=== PATIENT | female | born 1960 | race Caucasian/White ===

== ENCOUNTER 2017-07-11 10:42 | Inpatient (IN) | payer BC, OTHER ==
[2017-07-11] VITALS (10 sets, daily range): BP systolic 116–157; BP diastolic 65–78; PULSE 70–120; RESP 16–20; TEMP 97.3–99; O2SAT 98–100
[~2017-07-11] VITALS: Ht 162.6 cm; Wt 71.5 kg
[~2017-07-11 10:42] MED LIST: BP PILL; CHOLESTEROL PILL; LORT5TAB PO
[2017-07-11] MEDS ORDERED: ROSU40 PO (10:58)
[2017-07-11] MEDS ORDERED: ALLO100T PO (10:58)
[2017-07-11] MEDS ORDERED: BP MED (10:58)
[2017-07-11] MEDS ORDERED: SODIUM CHLOR 0.9% 250 ML INJ 250 ML IV ONE (11:00)
--- NOTE | 2017-07-11 11:14 | PD ---
HPI Chief Complaint: Abnormal Results Time Seen by Provider: 10:58 Travel History International Travel<30 days: No Contact w/Intl Traveler<30days: No Traveled to known affect area: No History of Present Illness HPI The patient 57 years old and arrives due to low hemoglobin obtained on blood work which was drawn yesterday. Hemoglobin is 5.8. The patient has history of chronic hematuria. She follows with urology, Dr. Mendoza, a few years ago and a cystoscopy was done which was unremarkable. The patient also has large bleeding hemorrhoids and has followed with colorectal service, Dr. Schultz, who advised colonoscopy and hemorrhoidectomy. Patient has not undergone colonoscopy. She does report a slightly orange urine always. No black stool blood mixed with stool. She reports shortness of breath on exertion, palpitations, dizziness and headaches. PFSH Past Medical History High Cholesterol: Yes Diminished Hearing: No Hypertension: Yes Tetanus Vaccination: Unknown ?: Not Past Surgical History Hysterectomy: Yes Social History Alcohol Use: Yes (2/DAY) Tobacco Use: No Substance Use: No Allergies-Medications (Allergen,Severity, Reaction): Coded Allergies: No Known Allergies (Verified Adverse Reaction, Unknown, 07/11/17) Reported Meds & Prescriptions Reported Meds & Active Scripts Active Reported [Bp Med] Crestor (Rosuvastatin Calcium) 40 Mg Tab 40 Mg PO DAILY Allopurinol 100 Mg Tab 100 Mg PO DAILY Review of Systems Except as stated in HPI: all other systems reviewed are Neg General / Constitutional: No: Fever Physical Exam Narrative GENERAL: 57-year-old female pleasant well-nourished well-developed Vital Signs Date Time Temp Pulse Resp B/P (MAP) Pulse Ox O2 Delivery O2 Flow Rate FiO2 07/11/17 10:52 16 100 Room Air 07/11/17 10:44 99.0 120 16 145/65 (91) 100 SKIN: Warm and dry. HEAD: Atraumatic. Normocephalic. EYES: Pupils equal and round. No scleral icterus. No injection or drainage. ENT: No nasal bleeding or discharge. Mucous membranes pink and moist. NECK: Trachea midline. No JVD. CARDIOVASCULAR: Tachycardia. Regular rhythm. RESPIRATORY: No accessory muscle use. Clear to auscultation. Breath sounds equal bilaterally. GASTROINTESTINAL: Abdomen soft, non-tender, nondistended. Hepatic and splenic margins not palpable. MUSCULOSKELETAL: Extremities without clubbing, cyanosis, or edema. No obvious deformities. NEUROLOGICAL: Awake and alert. No obvious cranial nerve deficits. Motor grossly within normal limits. Five out of 5 muscle strength in the arms and legs. Normal speech. PSYCHIATRIC: Appropriate mood and affect; insight and judgment normal. Data Data Last Documented VS Vital Signs Date Time Temp Pulse Resp B/P (MAP) Pulse Ox O2 Delivery O2 Flow Rate FiO2 07/11/17 10:52 16 100 Room Air 07/11/17 10:44 99.0 120 145/65 (91) Orders Orders Complete Blood Count With Diff (07/11/17 10:56) Basic Metabolic Panel (Bmp) (07/11/17 10:56) ^ Saline Lock (07/11/17 10:56) Red Blood Cells (Rbc) (07/11/17 10:56) Blood Product Administration (07/11/17 10:56) Sodium Chlor 0.9% 250 Ml Inj (Ns 250 Ml (07/11/17 11:00) Type And Screen (07/11/17 10:56) Admit To Inpatient (07/11/17 ) Vital Signs (Adult) Q4H (07/11/17 11:38) Activity Bed Rest (07/11/17 11:38) Diet Heart Healthy (07/11/17 Lunch) Sodium Chlor 0.45% 1000 Ml Inj (1/2 Ns 1 (07/11/17 11:38) Sodium Chloride 0.9% Flush (Ns Flush) (07/11/17 11:45) Sodium Chloride 0.9% Flush (Ns Flush) (07/11/17 21:00) Acetaminophen (Tylenol) (07/11/17 11:45) Ondansetron Inj (Zofran Inj) (07/11/17 11:45) Basic Metabolic Panel (Bmp) (07/12/17 06:00) Complete Blood Count With Diff (07/12/17 06:00) Scd Bilateral/Knee High COURTNEY.BID (07/11/17 11:38) Naloxone Inj (Narcan Inj) (07/11/17 11:45) Docusate Sodium-Senna (Emma-Colace) (07/11/17 21:00) Magnesium Hydroxide Liq (Milk Of Magnesi (07/11/17 11:45) Sennosides (Senokot) (07/11/17 11:45) Bisacodyl Supp (Dulcolax Supp) (07/11/17 11:45) Inpatient Certification (07/11/17 ) Consult Gastroenterology (07/11/17 ) Clonidine (Catapres) (07/11/17 11:45) Labs Laboratory Tests Test 07/11/17 11:00 White Blood Count 12.4 TH/MM3 Red Blood Count 2.07 MIL/MM3 Hemoglobin 5.8 GM/DL Hematocrit 17.5 % Mean Corpuscular Volume 84.7 FL Mean Corpuscular Hemoglobin 28.1 PG Mean Corpuscular Hemoglobin Concent 33.2 % Red Cell Distribution Width 14.6 % Platelet Count 637 TH/MM3 Mean Platelet Volume 8.3 FL Neutrophils (%) (Auto) 68.2 % Lymphocytes (%) (Auto) 16.8 % Monocytes (%) (Auto) 8.6 % Eosinophils (%) (Auto) 2.1 % Basophils (%) (Auto) 4.3 % Neutrophils # (Auto) 8.4 TH/MM3 Lymphocytes # (Auto) 2.1 TH/MM3 Monocytes # (Auto) 1.1 TH/MM3 Eosinophils # (Auto) 0.3 TH/MM3 Basophils # (Auto) 0.5 TH/MM3 CBC Comment DIFF FINAL Differential Comment Blood Urea Nitrogen 11 MG/DL Creatinine 0.89 MG/DL Random Glucose 134 MG/DL Calcium Level 9.2 MG/DL Sodium Level 138 MEQ/L Potassium Level 3.5 MEQ/L Chloride Level 104 MEQ/L Carbon Dioxide Level 22.3 MEQ/L Anion Gap 12 MEQ/L Estimat Glomerular Filtration Rate 65 ML/MIN MDM Medical Decision Making Medical Screen Exam Complete: Yes Emergency Medical Condition: Yes Medical Record Reviewed: Yes Differential Diagnosis bleed, GI bleed, anemia, anemia chronic disease Narrative Course We have the blood work from [facility] which revealed a hemoglobin of 5.8. The patient also has symptoms consistent with it. 3 units packed cells ordered. Patient will be admitted for red cell transfusion and workup as deemed appropriate by admitting service. CBC & BMP Diagram 07/11/17 11:00 Calcium Level 9.2 Discussed with extended provider Mayra paris for Dr Stallworth. Diagnosis Primary Impression: Anemia Qualified Codes: D64.9 - Anemia, unspecified Admitting Information Admitting Physician Requests: Corey Garcia MD July 11, 2017 11:14
[2017-07-11 11:18] LABS: AUTOMATED NEUTROPHIL # 8.4 TH/MM3 (1.8-7.7); BASOPHIL # 0.5 TH/MM3 (0-0.2); BASOPHIL % 4.3 % (0.0-2.0); EOSINOPHIL # 0.3 TH/MM3 (0-0.4); EOSINOPHIL % 2.1 % (0.0-4.0); LYMPH % 16.8 % (9.0-44.0); LYMPHOCYTE # 2.1 TH/MM3 (1.0-4.8); MEAN CELL VOLUME 84.7 FL (80.0-100.0); MEAN CORPUSCULAR HEMOGLOBIN 28.1 PG (27.0-34.0); MEAN CORPUSCULAR HGB CONC 33.2 % (32.0-36.0); MEAN PLATELET VOLUME 8.3 FL (7.0-11.0); MONO % 8.6 % (0.0-8.0); MONOCYTE # 1.1 TH/MM3 (0-0.9); NEUT % 68.2 % (16.0-70.0); PLATELET COUNT 637 TH/MM3 (150-450); RED BLOOD COUNT 2.07 MIL/MM3 (4.00-5.30); RED CELL DISTRIBUTION WIDTH 14.6 % (11.6-17.2); WHITE BLOOD COUNT 12.4 TH/MM3 (4.0-11.0)
[2017-07-11 11:23] LABS: HEMATOCRIT 17.5 % (35.0-46.0); HEMOGLOBIN 5.8 GM/DL (11.6-15.3)
[2017-07-11 11:37] LABS: CALCIUM 9.2 MG/DL (8.5-10.1)
[2017-07-11 11:38] LABS: BICARBONATE 22.3 MEQ/L (21.0-32.0)
[2017-07-11 11:41] LABS: CREATININE 0.89 MG/DL (0.50-1.00)
[2017-07-11] MEDS ORDERED: MAGNESIUM HYDROXIDE SUSP 30 ML CUP PO PRN (11:45)
[2017-07-11] MEDS ORDERED: SENNOSIDES 8.6 MG TAB PO PRN (11:45)
[2017-07-11] MEDS ORDERED: ACETAMINOPHEN 325 MG TAB PO PRN (11:45)
[2017-07-11] MEDS ORDERED: ONDANSETRON HCL 4 MG/2 ML VIAL IVP PRN (11:45)
[2017-07-11] MEDS ORDERED: NALOXONE HCL 0.4 MG/ML AMP IV PUSH PRN (11:45)
[2017-07-11] MEDS ORDERED: cloNIDine HCL 0.1 MG TAB PO PRN (11:45)
[2017-07-11] MEDS ORDERED: SODIUM CHLORIDE 0.9% FLUSH 10 ML FLUSH IV FLUSH PRN (11:45)
[2017-07-11] MEDS ORDERED: BISACODYL 10 MG SUPP RECTAL PRN (11:45)
[2017-07-11] MEDS: SODIUM CHLOR 0.45% 1000 ML INJ 1,000 ML IV SCH (11:56)
[2017-07-11] MEDS ORDERED: ONDANSETRON ODT 4 MG TAB SL PRN (12:15)
--- NOTE | 2017-07-11 12:23 | HHI.HP ---
[facility] Service [facility] Primary Care Physician Camacho Neff DO Admission Diagnosis Anemia Diagnoses: (1) Anemia Chief Complaint: Rectal bleeding Travel History International Travel<30 Days: No Contact w/Intl Traveler <30 Da: No Traveled to Known Affected Are: No Sepsis Criteria SIRS Criteria (2 or more): Heart rate over 90, WBC > 95283, < 4000 or > 10% bands History of Present Illness This is a pleasant 57-year-old female patient with a known medical history of hypertension who presented to the ED with abnormal lab results of a hemoglobin of 5.8. Patient states she had her blood work done at her PCP office and she was called this morning telling her to go to the ED for anemia. Patient states that over the last year and a half she has complaints of intermittent bleeding from her hemorrhoids. She does state that her hemorrhoids are very large, recently saw a colorectal surgeon, Dr. Schultz, who advised her to undergo colonoscopy with hemorrhoidectomy. Patient has not been able to schedule this appointment yet. She does admit to occasional nausea, denies any vomiting, weight loss or black stool. Patient does state that she has complaints of fatigue, lightheadedness and dizziness for the last week or so and has been worsening lately. Hemoglobin 5.8/Hematocrit 17.5 upon presentation. Plan will be to transfuse patient with PRBC and follow up with colorectal outpatient. Past Family Social History Past Medical History Hypertension Tobacco abuse Hemorrhoids Past Surgical History Hysterectomy Left elbow repair 6. Reported Medications Active Reported [Bp Med] Crestor (Rosuvastatin Calcium) 40 Mg Tab 40 Mg PO DAILY Allopurinol 100 Mg Tab 100 Mg PO DAILY Allergies: Coded Allergies: No Known Allergies (Verified Adverse Reaction, Unknown, 07/11/17) Active Ordered Medications Current Medications Medications (Trade) Dose Ordered Sig/Charles Route Start Time Stop Time Status Last Admin Sodium Chloride 250 ml @ 15 mls/hr ONCE ONCE IV 07/11/17 11:00 07/12/17 03:39 Sodium Chloride 1,000 ml @ 75 mls/hr [id number] IV 07/11/17 11:38 07/11/17 11:56 (NS Flush) 2 ml UNSCH PRN IV FLUSH 07/11/17 11:45 (NS Flush) 2 ml BID IV FLUSH 07/11/17 21:00 (Tylenol) 650 mg Q4H PRN PO 07/11/17 11:45 (Zofran Inj) 4 mg Q6H PRN IVP 07/11/17 11:45 (Narcan Inj) 0.4 mg UNSCH PRN IV PUSH 07/11/17 11:45 (Emma-Colace) 1 tab BID PO 07/11/17 21:00 (Milk Of Magnesia Liq) 30 ml Q12H PRN PO 07/11/17 11:45 (Senokot) 17.2 mg Q12H PRN PO 07/11/17 11:45 (Dulcolax Supp) 10 mg DAILY PRN RECTAL 07/11/17 11:45 (Catapres) 0.1 mg Q6H PRN PO 07/11/17 11:45 Family History Maternal medical history significant for kidney transplant. Paternal medical history for ND at the age of 7070 years old. Social History Patient admits to smoking half pack per week for 30 years. Admits to drinking alcohol on the weekends. Denies any illicit drug use. Physical Exam Vital Signs Vital Signs Date Time Temp Pulse Resp B/P (MAP) Pulse Ox O2 Delivery O2 Flow Rate FiO2 07/11/17 10:52 16 100 Room Air 07/11/17 10:44 99.0 120 16 145/65 (91) 100 Physical Exam GENERAL: Well-developed, well-nourished patient in [facility]. SKIN: Warm and dry. No rash. Pale HEAD: Normocephalic. Atraumatic. EYES: Pupils equal and round. No scleral icterus. No injection or drainage. ENT: No nasal bleeding or discharge. Mucous membranes pink and moist. NECK: Supple. Trachea midline. CARDIOVASCULAR: Regular rate and rhythm. S1, S2 noted. No murmur appreciated. RESPIRATORY: No accessory muscle use. Clear to auscultation. Breath sounds equal bilaterally. GASTROINTESTINAL: Abdomen soft, non-tender, nondistended. Normoactive bowel sounds x4. MUSCULOSKELETAL: No obvious deformities. Extremities without clubbing, cyanosis , or edema. NEUROLOGICAL: Awake and alert. No obvious cranial nerve deficits. Motor grossly within normal limits. 5/5 muscle strength in bilateral upper and lower extremities. Normal speech. PSYCHIATRIC: Appropriate mood and affect; insight and judgment normal. Laboratory Laboratory Tests Test 07/11/17 11:00 White Blood Count 12.4 Red Blood Count 2.07 Hemoglobin 5.8 Hematocrit 17.5 Mean Corpuscular Volume 84.7 Mean Corpuscular Hemoglobin 28.1 Mean Corpuscular Hemoglobin Concent 33.2 Red Cell Distribution Width 14.6 Platelet Count 637 Mean Platelet Volume 8.3 Neutrophils (%) (Auto) 68.2 Lymphocytes (%) (Auto) 16.8 Monocytes (%) (Auto) 8.6 Eosinophils (%) (Auto) 2.1 Basophils (%) (Auto) 4.3 Neutrophils # (Auto) 8.4 Lymphocytes # (Auto) 2.1 Monocytes # (Auto) 1.1 Eosinophils # (Auto) 0.3 Basophils # (Auto) 0.5 CBC Comment DIFF FINAL Differential Comment Blood Urea Nitrogen 11 Creatinine 0.89 Random Glucose 134 Calcium Level 9.2 Sodium Level 138 Potassium Level 3.5 Chloride Level 104 Carbon Dioxide Level 22.3 Anion Gap 12 Estimat Glomerular Filtration Rate 65 Result Diagram: 07/11/17 1100 07/11/17 1100 Septic Shock Reassessment Septic shock perfusion: reassessment completed Caprini VTE Risk Assessment Caprini VTE Risk Assessment: No/Low Risk (score <= 1) Caprini Risk Assessment Model Point Value = 1 Point Value = 2 Point Value = 3 Point Value = 5 Age 41-60 Minor surgery BMI > 25 kg/m2 Swollen legs Varicose veins or History of unexplained or recurrent spontaneous Oral contraceptives or hormone replacement Sepsis (< 1 month) Serious lung disease, including pneumonia (< 1 month) Abnormal pulmonary function Acute myocardial infarction Congestive heart failure (< 1 month) History of inflammatory bowel disease Medical patient at bed rest Age 61-74 Arthroscopic surgery Major open surgery (> 45 min) Laparoscopic surgery (> 45 min) Malignancy Confined to bed (> 72 hours) Immobilizing plaster cast Central venous access Age >= 75 History of VTE Family history of VTE Factor V Leiden Prothrombin [id number] Lupus anticoagulant Anticardiolipin antibodies Elevated serum homocysteine Heparin-induced thrombocytopenia Other congenital or acquired thrombophilia Stroke (< 1 month) Elective arthroplasty Hip, pelvis, or leg fracture Acute spinal cord injury (< 1 month) Prophylaxis Regimen Total Risk Factor Score Risk Level Prophylaxis Regimen 0-1 Low Early ambulation 2 Moderate Order ONE of the following: *Sequential Compression Device (SCD) *Heparin 5000 units SQ BID 3-4 Higher Order ONE of the following medications: *Heparin 5000 units SQ TID *Enoxaparin/Lovenox 40 mg SQ daily (WT < 150 kg, CrCl > 30 mL/min) *Enoxaparin/Lovenox 30 mg SQ daily (WT < 150 kg, CrCl > 10-29 mL/min) *Enoxaparin/Lovenox 30 mg SQ BID (WT < 150 kg, CrCl > 30 mL/min) AND/OR *Sequential Compression Device (SCD) 5 or more Highest Order ONE of the following medications: *Heparin 5000 units SQ TID (Preferred with Epidurals) *Enoxaparin/Lovenox 40 mg SQ daily (WT < 150 kg, CrCl > 30 mL/min) *Enoxaparin/Lovenox 30 mg SQ daily (WT < 150 kg, CrCl > 10-29 mL/min) *Enoxaparin/Lovenox 30 mg SQ BID (WT < 150 kg, CrCl > 30 mL/min) AND *Sequential Compression Device (SCD) Assessment and Plan Problem List: (1) Anemia ICD Code: D64.9 - Anemia, unspecified Status: Acute Plan: Patient has been admitted. Hemoglobin 5.8/hematocrit 17.5 upon presentation. Bleeding suspect secondary to hemorrhoids. Will transfuse PRBCs. Recheck in trend H&H. Patient follows with Dr. Dickson outpatient, was advised for men to undergo colonoscopy and hemorrhoidectomy. Have placed a call in to him, awaiting callback. Likely will discharge patient to follow-up with him outpatient. Monitor closely for any acute continued bleeding. Follow vital signs. Blood pressure stable at this time. (2) Leukocytosis ICD Code: D72.829 - Elevated white blood cell count, unspecified Plan: White blood cell 12.4 upon presentation. No left shift. We will continue to monitor. Afebrile. No infection suspected. Physician Certification 2 Midnight Certification Type: Admission for Inpatient Services Order for Inpatient Services The services are ordered in accordance with Medicare regulations or non- Medicare payer requirements, as applicable. In the case of services not specified as inpatient-only, they are appropriately provided as inpatient services in accordance with the 2-midnight benchmark. Estimated LOS (days): 2 days is the estimated time the patient will need to remain in the hospital, assuming treatment plan goals are met and no additional complications. Post-Hospital Plan: Home Problem Qualifiers (1) Anemia: Qualified Codes: D64.9 - Anemia, unspecified Ethel Nunez July 11, 2017 12:23
[2017-07-11] MEDS ORDERED: AMLO10TA2 PO (12:28)
[2017-07-11] MEDS ORDERED: TRIA37.53 PO (12:28)
[2017-07-11] MEDS ORDERED: VARE1 PO (12:28)
[2017-07-11] MEDS ORDERED: ALEN1TAB48 PO (12:28)
[2017-07-11] MEDS: SODIUM CHLORIDE 0.9% FLUSH 10 ML FLUSH IV FLUSH SCH (20:39)
[2017-07-11] MEDS: DOCUSATE SODIUM 50 MG/SENNA 8.6 MG TAB PO SCH (20:40)
[2017-07-12] VITALS (7 sets, daily range): BP systolic 104–144; BP diastolic 57–80; PULSE 65–75; RESP 18–20; TEMP 96.8–98.5; O2SAT 97–99
[2017-07-12] MEDS: SODIUM CHLOR 0.45% 1000 ML INJ 1,000 ML IV SCH ×2 (00:58→14:18)
[2017-07-12 06:51] LABS: AUTOMATED NEUTROPHIL # 6.2 TH/MM3 (1.8-7.7); BASOPHIL % 0.2 % (0.0-2.0); EOSINOPHIL # 0.2 TH/MM3 (0-0.4); EOSINOPHIL % 2.8 % (0.0-4.0); HEMATOCRIT 23.6 % (35.0-46.0); HEMOGLOBIN 7.9 GM/DL (11.6-15.3); LYMPH % 18.3 % (9.0-44.0); LYMPHOCYTE # 1.6 TH/MM3 (1.0-4.8); MEAN CELL VOLUME 84.3 FL (80.0-100.0); MEAN CORPUSCULAR HGB CONC 33.2 % (32.0-36.0); MEAN PLATELET VOLUME 8.3 FL (7.0-11.0); MONO % 8.5 % (0.0-8.0); MONOCYTE # 0.8 TH/MM3 (0-0.9); NEUT % 70.2 % (16.0-70.0); PLATELET COUNT 515 TH/MM3 (150-450); RED BLOOD COUNT 2.81 MIL/MM3 (4.00-5.30); RED CELL DISTRIBUTION WIDTH 14.3 % (11.6-17.2); WHITE BLOOD COUNT 8.8 TH/MM3 (4.0-11.0)
[2017-07-12 07:06] LABS: BICARBONATE 28.4 MEQ/L (21.0-32.0); CALCIUM 8.7 MG/DL (8.5-10.1)
[2017-07-12 07:10] LABS: CREATININE 0.65 MG/DL (0.50-1.00)
--- NOTE | 2017-07-12 08:17 | HHI.PR ---
Subjective Remarks Follow-up anemia suspect secondary to bleeding hemorrhoids. Patient seen and examined, lying in bed comfortably no apparent distress. Patient states her symptoms have much improved. Denies any fatigue, lightheadedness or dizziness. Patient will receive 1 more unit of PRBCs. Hemoglobin 7.9 this morning. Will recheck later this afternoon. Likely discharge home and follow-up with Dr. Schultz in his office. Objective Vitals Vital Signs Date Time Temp Pulse Resp B/P (MAP) Pulse Ox O2 Delivery O2 Flow Rate FiO2 07/12/17 04:02 97.9 72 20 104/62 (76) 98 07/12/17 00:00 96.8 73 20 107/57 (74) 97 07/11/17 21:58 70 07/11/17 20:20 98.7 78 20 140/73 98 07/11/17 20:10 98.5 80 20 116/78 (91) 99 07/11/17 19:59 98.5 80 20 116/78 99 07/11/17 16:37 97.3 98 17 141/68 (92) 100 07/11/17 16:09 98.0 91 16 138/70 98 07/11/17 15:57 98.0 90 18 100 07/11/17 15:45 98.5 87 18 157/72 07/11/17 14:32 98.8 90 17 141/65 (90) 100 07/11/17 13:03 92 16 100 07/11/17 10:52 16 100 Room Air 07/11/17 10:44 99.0 120 16 145/65 (91) 100 I/O 07/11/17 07/11/17 07/11/17 07/12/17 07/12/17 07/12/17 07:00 15:00 23:00 07:00 15:00 23:00 Intake Total 975 ml 509 ml Balance 975 ml 509 ml Intake Oral 240 ml IV Total 30 ml 509 ml Packed Cells 660 ml Blood Product IV Normal Saline Flush 45 ml # Voids 1 Result Diagram: 07/12/17 0530 07/12/17 0530 Objective Remarks GENERAL: Well-developed, well-nourished patient in [facility]. SKIN: Warm and dry. No rash. Pale HEAD: Normocephalic. Atraumatic. EYES: Pupils equal and round. No scleral icterus. No injection or drainage. ENT: No nasal bleeding or discharge. Mucous membranes pink and moist. NECK: Supple. Trachea midline. CARDIOVASCULAR: Regular rate and rhythm. S1, S2 noted. No murmur appreciated. RESPIRATORY: No accessory muscle use. Clear to auscultation. Breath sounds equal bilaterally. GASTROINTESTINAL: Abdomen soft, non-tender, nondistended. Normoactive bowel sounds x4. MUSCULOSKELETAL: No obvious deformities. Extremities without clubbing, cyanosis , or edema. NEUROLOGICAL: Awake and alert. No obvious cranial nerve deficits. Motor grossly within normal limits. 5/5 muscle strength in bilateral upper and lower extremities. Normal speech. PSYCHIATRIC: Appropriate mood and affect; insight and judgment normal. A/P Problem List: (1) Anemia ICD Code: D64.9 - Anemia, unspecified Status: Acute Plan: Patient has been admitted. Hemoglobin 5.8/hematocrit 17.5 upon presentation. Bleeding suspect secondary to hemorrhoids. Status post PRBC x 2 units. Hemoglobin up to 7.9. Will transfuse one more unit today. Patient follows with Dr. Dickson outpatient, was advised for men to undergo colonoscopy and hemorrhoidectomy. Spoke to him and will expect patient in his office next week. Appointment has been arranged. Monitor closely for any acute continued bleeding. Follow vital signs. Blood pressure stable at this time. Will recheck H&H later this afternoon, if stable will DC home. (2) Leukocytosis ICD Code: D72.829 - Elevated white blood cell count, unspecified Plan: White blood cell 12.4 upon presentation. No left shift. We will continue to monitor. Afebrile. No infection suspected. Has improved today. Discharge Planning DC home today after PRBC transfusion and stable H&H. F/u with Dr. Schultz in office. Problem Qualifiers (1) Anemia: Qualified Codes: D64.9 - Anemia, unspecified Ethel Nunez MEDARDO July 12, 2017 08:17
[2017-07-12] MEDS: DOCUSATE SODIUM 50 MG/SENNA 8.6 MG TAB PO SCH (09:00)
[2017-07-12] MEDS: SODIUM CHLORIDE 0.9% FLUSH 10 ML FLUSH IV FLUSH SCH (09:00)
--- NOTE | 2017-07-12 10:14 | HHI.DCPOC ---
Discharge Care Plan Diagnosis: (1) Anemia Goals to Promote Your Health * To prevent worsening of your condition and complications * To maintain your health at the optimal level Directions to Meet Your Goals Take your medications as prescribed Follow your dietary instruction Follow activity as directed Keep your appointments as scheduled Take your immunizations and boosters as scheduled If your symptoms worsen call your PCP, if no PCP go to Urgent Care Center or Emergency Room Smoking is Dangerous to Your Health. Avoid second hand smoke Call the 24-hour hour crisis hotline for domestic abuse at Ethel Nunez July 12, 2017 10:14
[2017-07-12 15:54] LABS: HEMATOCRIT 29.7 % (35.0-46.0); HEMOGLOBIN 10.1 GM/DL (11.6-15.3)
== END 2017-07-12 17:58 | disposition home or self-care (01) | DRG 812 ==
LOC: PHED 10:42 → PHEDA 11:45 → OBSVTOIN 11:45 → PH3A 13:39
PROVIDERS: ADMIT Hospitalist; ATTEND Hospitalist
PROC: 30233N1 Transfusion of Nonautologous Red Blood Cells into Peripheral Vein, Percutaneous Approach (ICD-10-PCS; principal; 2017-07-11)
DX: D50.0 Iron deficiency anemia secondary to blood loss (chronic) (principal); I10 Essential (primary) hypertension; D72.829 Elevated white blood cell count, unspecified; K64.9 Unspecified hemorrhoids; R31.9 Hematuria, unspecified; E78.00 Pure hypercholesterolemia, unspecified; Z87.891 Personal history of nicotine dependence
CPT/HCPCS: 36430; 80048; 85014; 85018; 85025; 86850; 86900; 86901; 86920; 96360; J7050; P9016